=== PATIENT | female | born 2000 | race Caucasian/White ===

== ENCOUNTER 2020-04-08 07:10 | Emergency (ER) | payer OTHER, MEDICAID, SELFPAY ==
[2020-04-08 07:12] VITALS: BP 124/80; PULSE 98; RESP 16; TEMP 36.3; O2SAT 98; BMI 24.4
[2020-04-08 07:28] LABS: Mucous, Urine 0 SEEN /hpf (<or=2+); White Blood Cells 0 SEEN /hpf (0-5)
--- NOTE | 2020-04-08 07:31 | ED.DCSUM_ITS ---
History of Present Illness Chief Complaint: Nausea/Vomiting Informant: Patient, Family - Abdominal Pain/Flank Pain Onset: Today Context: Gradual Onset Timing: Intermittent Quality: Burning Location: Epigastric - Nausea/Vomiting/Emesis GI Symptom: Nausea, Vomiting Onset: Today Quality: Nonbilious. Negative for: Blood streaks, Coffee ground, Hematemesis Narrative: Patient is a 19-year-old female that denies any past medical history presenting with nausea and vomiting. Patient states around 11 PM last night she started to feel nauseous. An hour before that she had eaten some [place] toast and thought maybe tasted off. No one else ate it. At 2:30 AM, about 5 hours prior to arrival patient started vomiting. She has had about 12 episodes of emesis since. She is not been able to keep anything down including water and Pepto- Bismol. She states that she has a stabbing discomfort in her epigastric region especially when she throws up. She denies any change in bowel habits or urinary symptoms. She denies any sick contacts. Patient works at a [employer] shop so she not sure if she is been around anyone that is been sick mother is at the bedside notes that patient does have a sensitive stomach. No other complaints at this time. Past Medical History - Allergies and Home Meds Allergies/Adverse Reactions: Allergies No Known Allergies Allergy (Verified 04/08/20 07:10) Primary Care Physician: Shon Etienne DO [STAFF PHYSICIAN] - Past Medical History: None Surgical History: no surgical history Lives: With Family Smoking Status: Never smoker Review of Systems General: Denies: Chills, Fever, Sweats Eyes: Denies: Visual changes - bilaterally, Diplopia ENT: Denies: Rhinorrhea, Sore throat Cardiovascular: Denies: Chest pain, Palpitations Respiratory: Denies: Dyspnea, Cough, Dyspnea on exertion Gastrointestinal: Reports: Abdominal pain, Nausea, Vomiting. Denies: Diarrhea, Melena, Hematochezia Genitourinary: Denies: Dysuria, Hematuria, Frequency Musculoskeletal: Denies: Back pain, Extremity Pain Skin: Denies: Rash, Wounds Neurological: Denies: Headache, Weakness, Numbness Physical Exam Vital Signs/Narrative: Vital Signs Temp Pulse Resp BP Pulse Ox 04/08/20 07:12 97.4 F L 98 16 124/80 H 98 Inital Vital Signs reviewed: Yes General: Well nourished, Well developed, No Acute Distress Head: Normocephalic, Atraumatic Eyes: Perrl, EOMI ENT: Moist mucous membranes, No rhinorrhea. Negative for: Dry mucous membranes Neck: Supple, Nontender Cardiovascular: Regular rate, Regular rhythm, No murmurs Respiratory: No distress, CTA bilaterally, Chest nontender Abdomen: Soft, Nontender, Nondistended, Normal bowel sounds. Negative for: Guarding, Rebound tenderness, Lerma's sign Back: Nontender, Normal Inspection. Negative for: CVA tenderness Extremities: Nontender, No edema Skin: Normal color, No rash Neurological: Alert, Oriented x3, Cranial nerves II-XII grossly intact, Normal Strength, Normal Sensation Psychological: Normal affect, Normal Mood Diagnostic/Tx/Re-eval Laboratory Data 04/08/20 04/08/20 07:20 07:20 Urine Color Yellow Urine Clarity Sl. Cloudy Urine pH 5.0 Ur Specific [place] 1.030 Urine Protein 30 H Urine Glucose (UA) Normal Urine Ketones 150 H Urine Occult Blood 10 H Urine Nitrite Negative Urine Bilirubin Negative Urine Urobilinogen Normal Ur Leukocyte Esterase Negative Urine RBC 0-5 SEEN Urine WBC 0 SEEN Ur Squamous Epith Cells 0-5 SEEN Urine Bacteria 1+ Urine Mucus 0 SEEN Urine Test Negative - Medical Decision Making Patient evaluated for acute onset of vomiting and epigastric pain. She appears nontoxic in no acute distress. She does not appear clinically dehydrated. Her vital signs are normal. Urinalysis does show ketones but no source of infection. Urine is negative. Her abdomen is soft and nontender. Discussed symptomatic treatment and patient is amenable to that. Will trial oral Zofran and p.o. challenge. On reevaluation patient states she is feeling much better and is drinking water easily. Will be discharged home with a presc ription for Zofran. Patient counseled that should her symptoms worsen or she not be able take fluids despite Zofran at home, she might need return at that time we will need to do further lab work and IV fluids. Patient is counseled on signs and symptoms requiring return to the emergency room. Patient verbalizes agreement and understand this plan. Patient discharged home in stable and improved condition. ED Disposition - Plan for ED Patient: Disposition: Home or Assisted Living Diagnosis: Vomiting, Dehydration Instructions: ED Diet for Vomiting or Diarrhea Adult, ED Nausea Vomiting Adult Prescriptions: Ondansetron HCl [Zofran] 4 mg PO Q6H PRN PRN #15 tab PRN Reason: Nausea Prescription Printed Referrals: Shon Etienne DO [STAFF PHYSICIAN] - Additional Instructions: Drink lots of fluids over the next few days to rehydrate yourself. Return to emergency room with worsening symptoms. Right now I do not think we need to do blood work/IV medications and I think you are safe to go home. Get plenty of rest.
[2020-04-08] MEDS: Ondansetron ODT 4 MG Tablet PO (07:32)
[2020-04-08 07:34] LABS: Color, Urine Yellow (Yellow); Glucose, Dipstick Normal (Normal); Leukocyte Esterase-Dipstick Negative /ul (Negative); Nitrite-Dipstick Negative (Negative); Occult Blood-Urine 10 /ul (Negative); Protein-Dipstick 30 mg/dl (Negative); Urine Bilirubin Dipstick Negative (Negative); Urine Clarity Sl. Cloudy (Clear); Urine Urobilinogen Normal (Normal)
[2020-04-08 07:36] LABS: Internal QC Validated? YES +Cl - CLEAR BKGD; Ketone-Dipstick 150 mg/dl (Negative)
[2020-04-08 07:37] LABS: Pregnancy, Urine Negative Negative
[2020-04-08 07:41] LABS: Bacteria 1+ /hpf (None Seen); Red Blood Cells-Urine 0-5 SEEN /hpf (0-5); Squamous Epithelial Cells - UA 0-5 SEEN /hpf (5-10)
== END 2020-04-08 08:50 | disposition home or self-care (01) ==
PROVIDERS: Emergency Provider Emergency Medicine; PCP Internal Medicine Pulmonary Disease
DX: R11.2 Nausea with vomiting, unspecified (principal); E86.0 Dehydration
CPT/HCPCS: 81001; 81025; 99283

== ENCOUNTER 2020-09-22 11:08 | Emergency (ER) | payer OTHER, MEDICAID, SELFPAY ==
[2020-09-22 11:09] VITALS: BP 121/78; PULSE 89; RESP 16; TEMP 36.1; O2SAT 98; BMI 24.7
--- NOTE | 2020-09-22 12:39 | CT_ITS ---
STUDY: CT ABDOMEN AND PELVIS WITH CONTRAST REASON FOR EXAM: Female, 19 years old. RLQ abd pain -- ?? appy RADIATION DOSAGE (If Supplied By Facility): CTDIvol = ( 11.82 ) mGy, DLP = ( 354.47 ) mGycm TECHNIQUE: Transaxial images were obtained from the dome of the diaphragm to the symphysis pubis without oral contrast. IV 100mL Isovue-300 was administered. Sagittal and coronal images were reconstructed. Individualized dose optimization techniques were used for this CT. COMPARISON: None. FINDINGS: The visualized lung bases are unremarkable. The visualized portions of the heart are within normal limits. Normal liver. Normal gallbladder and extrahepatic biliary system. Normal spleen. Normal pancreas. Normal bilateral adrenal glands. Normal right kidney. Normal left kidney. Normal visualized stomach. Normal small intestine. Normal colon. There is non-visualization of the appendix. Normal abdominal aorta. Normal inferior vena cava. Normal retroperitoneum. Normal urinary bladder. 3.5 cm oval mass of water attenuation left adnexa consistent with a corpus luteum cyst. There is a small umbilical hernia containing fat. Normal osseous structures. CT/Abdomen/Pelvis W IV Cont ONLY IMPRESSION: 3.5 cm left corpus luteum cyst. Nonvisualization of the appendix. Electronically Signed: Gunnar Webb MD at 13:56 EDT Tel , Service support ,
--- NOTE | 2020-09-22 12:42 | ED.VISSUMM ---
- ER Visit Summary Date of Service: 09/22/20 Chief Complaint: Right lower quadrant abdominal pain History of Present Illness: The patient is a 19 F no seen past medical or surgical history. Patient states she started having right lower quadrant abdominal pain since 10:00 last night. Is been constant. Associated nausea vomiting. Decreased appetite. She denies any fever or chills. She denies any abdominal trauma. She denies any dysuria or vaginal bleeding or discharge. Last menstrual period was 2 weeks ago. States she is never been and is not sexually active. Last bowel movement was yesterday. Mom and patient are concerned that she may have appendicitis because both the mother and brother had similar symptoms with therapist. Physical Examination: Well-appearing 19-year-old female no acute distress. Vital signs are stable afebrile. H EENT exam unremarkable. Neck nontender. Lungs are clear to auscultation bilaterally. Heart regular rhythm no murmur rate about 90. Abdomen is soft. Right lower quadrant tenderness. No rebound, guarding or rigidity. Left upper and left lower quadrant unremarkable. Normal bowel sounds. Nondistended. No masses. No hernia. No obstruction. Patient moving all 4 extremities. Back nontender. Neurologically she is awake alert with no focal motor deficits. Test Results: See normal white count of 10. Hemoglobin 12. Chemistries normal normal creatinine gap. Liver enzymes normal. UA normal. Serum test negative. CAT scan of the abdomen pelvis with IV contrast only as read by the radiologist and reviewed by me shows shows a 3.5 cm left ovarian cyst. The appendix is not seen. There is no signs of acute appendicitis. No signs of perforation. Dong exam patient is doing well. Abdominal exam is benign. No peritoneal signs. Clinically with a normal white count, no fever and unremarkable CAT scan I do not think this is appendicitis. The pains on her right the cyst is on her left that may or may not be the cause of her pain. Emergency Department Course and Treatment: During exam are consistent with possible appendicitis. She did not waiting for pain or nausea. She will of a CAT scan with IV contrast and labs. Treatment Plan: Tylenol and/or Motrin for pain. Return if increasing pain, fever or feeling worse. Otherwise follow-up with your primary care physician. Disposition: dc Impression: Acute right lower quadrant abdominal pain uncertain etiology Left ovarian cyst 3.5 cm This note was generated with Dragon dictation software. It may contain incorrect words, spelling, and punctuation that were not noted in review of the chart prior to signing ED Disposition - Plan for ED Patient: Referrals: Yasir Gusman MD [NON-STAFF] -
[2020-09-22 12:49] LABS: Absolute Lymphocyte Count 1.11 X10^3/uL (0.83-4.51); Absolute Neutrophil Count 8.2 X10^3/uL (2.0-7.7); Basophil# 0.01 X10^3/uL; Basophil% 0.1 % (0-1); Eosinophil# 0.02 X10^3/uL; Eosinophils% 0.2 % (0-5); Hematocrit 37.9 % (37-47); Hemoglobin 12.8 g/dL (12.0-15.0); Lymphocyte # 1.11 X10^3/ul (4.0); Lymphocyte % 11.1 % (19-41); Mean Corp Hgb Conc 33.8 g/dL (32-36); Mean Corpuscular Hgb 31.8 pg (27.0-32.0); Mean Platelet Vol. 9.1 fl (6.2-12.0); Monocyte# 0.62 X10^3/uL; Monocyte% 6.2 % (0-10); NRBC Flagged by Analyzer 0 % (0-5); Neutrophil # 8.21 X10^3/uL (2.7-7.7); Neutrophil % 82.1 % (47-70); Platelet Count 263 K/mm3 (150-450); RBC Distribution Width CV 11.7 % (11.6-14.6); RBC Distribution Width SD 40.2 fl (35.1-43.9); Red Blood Count 4.03 M/mm3 (4.2-5.4)
[2020-09-22] MEDS: 0.9% Normal Saline 1,000 ML 1000 ML IV (12:54)
[2020-09-22 12:56] LABS: Red Blood Cells-Urine 0 SEEN /hpf (0-5)
[2020-09-22 12:59] LABS: Color, Urine Yellow (Yellow); Glucose, Dipstick Normal (Normal); Ketone-Dipstick 50 mg/dl (Negative); Leukocyte Esterase-Dipstick 25 /ul (Negative); Nitrite-Dipstick Negative (Negative); Occult Blood-Urine Negative /ul (Negative); Protein-Dipstick Negative (Negative); Specific Gravity, Urine 1.015 (1.002-1.030); Urine Bilirubin Dipstick Negative (Negative); Urine Clarity Sl. Cloudy (Clear); Urine Urobilinogen Normal (Normal)
[2020-09-22 13:03] LABS: ALB/GLOB Ratio 1.1 RATIO (0.9-2.4); AST(SGOT) 10 U/L (15-37); Alanine Aminotransfer ALT/SGPT 21 U/L (13-56); Albumin, Serum 3.8 g/dL (3.2-5.0); Alkaline Phosphatase 79 U/L (45-117); Anion Gap 7 (5-15); BUN 8 mg/dL (7-18); BUN/Creat Ratio 11.1 RATIO (10-20); Calcium,Total 8.8 mg/dL (8.5-10.1); Chloride 105 mmol/L (98-107); Creatinine, Serum 0.72 mg/dL (0.55-1.02); EST Glomerular Filtration Rate 110 mL/min (>60); Est Glom Filt Rate - Afr Amer 133 mL/min (>60); Globulin 3.5 g/dL (2.2-4.2); Glucose 93 mg/dL (74-106); Potassium 3.7 mmol/L (3.5-5.1); Protein, Total 7.3 g/dL (6.4-8.2); Sodium Level 137 mmol/L (136-145)
[2020-09-22 13:04] LABS: Squamous Epithelial Cells - UA 0-5 SEEN /hpf (5-10); White Blood Cells 0-5 SEEN /hpf (0-5)
[2020-09-22 13:05] LABS: Internal QC Validated? YES +Cl - CLEAR BKGD
[2020-09-22 13:05] LABS: Bacteria 1+ /hpf (None Seen); Mucous, Urine 1+ /hpf (<or=2+)
[2020-09-22 13:06] LABS: Pregnancy, Serum, hCG Quali. NEGATIVE Negative
[2020-09-22 13:53] VITALS: BP 105/61; PULSE 68; RESP 16; TEMP 36.4; O2SAT 100
--- NOTE | 2020-09-22 14:31 | ED.DEP ---
ED Disposition - Plan for ED Patient: Disposition: Home or Assisted Living Instructions: ED Abdominal Pain Unkn Cause Fem Referrals: Yasir Gusman MD [NON-STAFF] - 3-5 Days Additional Instructions: No obvious cause your pain. Your appendix was not enlarged nor perforated nor inflamed on the CAT scan. You do have a small cyst on your left ovary that may or may not be the cause your pain. Tylenol and/or Motrin for pain. Return if worsening pain, fever or intractable vomiting. Follow-up with your doctor if not improving.
[2020-09-22 14:41] VITALS: BP 107/74; PULSE 73; RESP 16; O2SAT 98
--- NOTE | 2020-09-22 14:42 | ED.RN ---
REVIEWED D/C INSTRUCTIONS, FOLLOW UP CARE, AND S/S THAT WOULD WARRANT A RETURN TO THE ED WITH PT. PT VERBALIZED AN UNDERSTANDING AND DENIES FURTHER QUESTIONS FOR THIS RN. PT SKIN P/W/D, RESP EVEN AND UNLABORED, PT A&O X 3, NO DISTRESS NOTED. PT AMBULATED OUT OF ED, GAIT STEADY.
== END 2020-09-22 14:43 | disposition home or self-care (01) ==
PROVIDERS: Emergency Provider Emergency Medicine; PCP Internal Medicine
DX: R10.31 Right lower quadrant pain (principal); N83.202 Unspecified ovarian cyst, left side
CPT/HCPCS: 74177; 80053; 81001; 84703; 85025; 99283; J7030; Q9967; A4216